=== PATIENT | male | born 2000 | race African-American/Black ===

== ENCOUNTER 2019-07-23 12:48 | Emergency (ER) | payer BC, MEDICAID, SELFPAY ==
[2019-07-23 13:29] LABS: #Basophils 0.1 thou/uL (0.0-0.2); #Eosinphils 0.1 thou/uL (0.0-0.7); #Lymphocytes 2.1 thou/uL (1.20-3.40); #Monocytes 0.5 thou/uL (0.11-0.59); %Basophils 2.1 % (0.0-1.0); %Eosinophils 1.9 % (0.0-10.0); %Lymphocytes 43.5 % (21.0-51.0); %Monocytes 10.4 % (0.0-10.0); %Neutrophils 42.1 % (42.0-75.0); Hemoglobin 14.1 g/dL (14.0-18.0); Mean Corpuscular HGB CONC 31.9 g/dL (32.0-36.0); Mean Corpuscular Hemoglobin 29.1 pg (27.0-31.0); Mean Corpuscular Volume 91.2 fL (78.0-98.0); Mean Platelet Volume 9.4 fL (7.4-10.4); Platelet Count 189 thou/uL (130-400); RBC Distribution Width 12.6 % (11.5-14.5); Red Blood Cell (RBC) Count 4.86 mill/uL (4.70-6.10); White Blood Cell (WBC) Count 4.7 thou/uL (4.8-10.8)
[2019-07-23 13:49] LABS: ALT (SGPT) 12 U/L (8-55); AST (SGOT) 13 U/L (5-34); Albumin 4.4 g/dL (3.5-5.0); Alkaline Phosphatase 69 U/L (40-110); Anion Gap 10 mmol/L (10-20); BUN (Urea Nitrogen) 15 mg/dL (8.9-20.6); Bilirubin, Total 0.4 mg/dL (0.2-1.2); Calc. Creatinine Clearance 0 mL/min (70-130); Calcium 9.3 mg/dL (7.8-10.44); Carbon Dioxide 29 mmol/L (22-29); Chloride 106 mmol/L (98-107); Estimated GFR-MDRD Greater than 90; Globulin 2.7 g/dL (2.4-3.5); Glucose 94 mg/dL (70-105); Lipase 24 U/L (8-78); Potassium 4.9 mmol/L (3.5-5.1); Protein, Total 7.1 g/dL (6.0-8.3); Sodium 140 mmol/L (136-145)
--- NOTE | 2019-07-23 14:20 | CT ---
CT OF THE ABDOMEN AND PELVIS WITHOUT IV CONTRAST: 07/23/19 INDICATION: 19-year-old male with urinary retention. COMPARISON: None. FINDINGS: Lung bases are clear. There is some mild fatty infiltration of the liver adjacent to the falciform ligament. The pancreas, spleen, adrenal glands and unopacified kidneys are unremarkable. No hydronephrosis juliane dent. No definite renal or ureteral calculus is noted. No enlarged lymph nodes or free fluid is grossly evident. There is a mild amount of retained stool within the colon. There is a normal appendix in the right lo wer quadrant. There is a layered density seen within the posterior aspects of the urinary bladder. The visualized p rostate, rectum, and perirectal soft tissues are unremarkable appearing. No definite acute osseous abnormality is demonstrated. IMPRESSION: 1. Layered density within the bladder suspicious for hemorrhage. Recommend correlation for any r ecent instrumentation. Recommend consideration for a CT urogram protocol with and without contrast fo r additional characterization. 2. Mild fatty infiltration of the liver adjacent to the falciform ligament. 3. No renal or ureteral calculus. POS: [facility]
[2019-07-23 14:59] LABS: Blood, Urine Large (Negative); Glucose, Urine (Dipstick) Negative (Negative); Nitrite Negative (Negative); Protein, Urine (Dipstick) > or equal to 300 mg/dL (Neg-Trace)
[2019-07-23 15:04] LABS: Clarity Opaque (Clear)
[2019-07-23 15:06] LABS: Bilirubin Negative (Negative); Urobilinogen 0.2 mg/dL (Less than 2)
[2019-07-23 15:08] LABS: RBC/HPF Greater than 50 HPF (0-3)
[2019-07-23 15:10] LABS: Leukocyte Unable to Interpret (Negative)
[2019-07-23 15:11] LABS: Bacteria/HPF None Seen HPF (None Seen); Squamous Epithelial None Seen HPF (0-3)
--- NOTE | 2019-07-23 16:20 | CON ---
DATE OF CONSULTATION: 07/23/2019 REASON FOR CONSULT: Gross hematuria, urinary retention. HISTORY OF PRESENT ILLNESS: Abbe is a 19-year-old male with no significant past medical history. He presented to the emergency room, as he states that he was unable to urinate since last night. History is somewhat evasive, however, upon further discussion with the patient, full history is such that he did have intercourse last night with his established partner, unprotected. He denies traumatic intercourse, impotence, penile curvature, or history consistent with penile fracture. He states that he ejaculated, there was blood in the semen. Subsequently, he had gross hematuria. He passed small clots, subsequently unable to void since last night. He presented to the emergency room, in which CT noncontrast was obtained demonstrating no evidence of hydronephrosis. CT demonstrates some hyperdensity in the dependent portion of the bladder consistent with old blood. No evidence of hydronephrosis is noted. A 15-Bengali straight cath was passed by the emergency room staff without significant issues, about 350 mL of red-tinged gross hematuria, plum colored was obtained. They removed the Sears catheter subsequently. Urology consultation was obtained regarding disposition. He denies prior history of STDs, dysuria, difficulty urinating. He denies split stream. In t the remote past, has had gross hematuria, however, does not recall the events precipitating this issue. Currently, he is resting comfortably. Denies fever, chills, weight loss, flank pain, or history of kidney stones. PAST MEDICAL HISTORY: None. PAST SURGICAL HISTORY: None. SOCIAL HISTORY: Denies illicit drug use. He is not a smoker. He is sexually active. Relates that he lives with his brother, and works as a music director per the patient. ALLERGIES: NO KNOWN DRUG ALLERGIES. REVIEW OF SYSTEMS: Ten-point review of systems as above, otherwise noncontributory. HOME MEDICATIONS: None. PHYSICAL EXAMINATION: VITAL SIGNS: Blood pressure 129/87, pulse 57, respiratory rate 18, and oxygen saturation 98. GENERAL: The patient appears to be in no acute distress. HEENT: Unremarkable. HEART: Regular rate. LUNGS: Clear. ABDOMEN: Soft. No rigidity. No rebound. EXTREMITIES: No cyanosis, clubbing, or edema. SKIN: He has multiple skin tattoos. NEUROLOGIC: No gross focal deficits. PSYCHIATRIC: Appears to be appropriate and intact. GENITOURINARY: Demonstrates circumcised phallus. Meatus is grossly unremarkable. No blood at the meatus. Testes are descended with no evidence of intratesticular mass. There is no evidence of penile fracture, i.e., ecchymosis, plaques, curvature, hematoma of concern. Scrotal exam is unremarkable and benign. BEDSIDE PROCEDURE: His genital was formally prepped and draped and I was able to pass a 16-Bengali Sears catheter without significant issues. I did irrigate his Sears catheter, had red-tinged hematuria. With irrigation, I evacuated some old sediment clots about 20 mL. With subsequent irrigation, it was pink, clear, with no subsequent blood clot of concern. He tolerated the procedure well uneventfully and transitioned to a gravity leg bag. PERTINENT LABORATORY DATA: White count 4, hemoglobin 14, and platelet 189. Creatinine 0.9. Urinalysis is red, no epithelials, no bacteria. Culture and STD panel have been sent by the emergency room. IMAGING DATA: CT noncontrast: Which I reviewed myself 1. Layer density in the dependent portion of the bladder consistent with hematoma. Consider CT hematuria protocol. 2. Mild fatty infiltration of the liver. No calculi or obstruction. Mild amount of retained stool in the rectal in colon. Of note, the patient denies constipation. Per my review, there is a layering of likely old blood clot measuring about 4 cm in medial and lateral direction by 1.8 x 1.9 cm. IMPRESSION AND PLAN: Abbe is a 19-year-old male with no significant past medical history, who presents with an episode of hematospermia, subsequent gross hematuria with postvoid residual of 350 to 400 mL due to clot retention. Sears catheter was placed uneventfully. I do not appreciate any further clots. A CT hematuria protocol will be obtained. If his urine output remains relatively clear with improving hematuria component and CT not concerning, patient will be discharged with indwelling urethral Sears catheter. Antibiotic prophylaxis will be provided by the emergency room, and will return to clinic this week to reassess and have a voiding trial if there is no subsequent hematuria of concern. At a later date, cystoscopy is warranted. addendum: CT hematuria protocol subsequently obtained reviewed with Dr. Oates radiologist of record. No evidence of hydronephrosis, filling defect, bladder opacified without significant issues per nursing, urine output reed-yellow. Patient approved to be discharged home with close follow-up with me. Job ID: [id number] [id number]
--- NOTE | 2019-07-23 16:41 | CT ---
EXAM: CT ABDOMEN AND PELVIS HISTORY: Hematuria. COMPARISON: Noncontrast CT 07/23/2019 at 1:41 PM Procedure: Multiple contiguous axial images were obtained and a CT of the abdomen and pelvis with IV contrast. C oronal reformats were performed. FINDINGS: Lower Chest: within normal limits. Vessels: Normal caliber aorta Heart: Normal heart size Abdomen: Portal vein:Patent Gallbladder: No calcified gallstones. Normal caliber wall. Liver: within normal limits. Pancreas: within normal limits. Spleen: within normal limits. Adrenals: within normal limits. Kidneys: Arterial phase: Symmetric enhancement. No enhancing masses Delayed phase: Symmetric excretion. No filling defects in the intrarenal or extrarenal collecting sys tem Peritoneum: No ascites or free air, no fluid collection. Bowel: Limited evaluation due to the lack of oral contrast administration. No evidence of bowel obstr uction. Ileocecal junction is unremarkable. Normal caliber appendix. Scattered fecal material in a nondistended, nondilated colon. Mesentery and Retroperitoneum: No enlarged mesenteric or retroperitoneal lymph nodes. Abdominal Wall: within normal limits. Pelvis: Reproductive Organs: Reproductive organs are unremarkable. Pelvis: No mass, lymphadenopathy, free air or free fluid. Bladder: Grossly noted hyperdensity in the dependent portion of the bladder is not appreciated. No ob vious filling defect. Bones: within normal limits. IMPRESSION: 1. No evidence of obstructive uropathy 2. No significant filling defect in the dependent portion of the urinary bladder.
[2019-07-23 16:42] LABS: HIV (1/2) Antibody/Antigen Non-Reactive (NonReactive); HIV 1/2 INDEX 0.15 S/CO (<1.00)
== END 2019-07-23 17:42 | disposition home or self-care (01) ==
LOC: ERS 12:48
DX: R31.9 Hematuria, unspecified (principal); R33.9 Retention of urine, unspecified
CPT/HCPCS: 36415; 51701; 74176; 74178; 80053; 81003; 81015; 83690; 85025; 87086; 87389; 96360; 96361